=== PATIENT | female | born 2000 | race American Indian/Alaskan Native ===

== ENCOUNTER 2022-07-24 13:42 | Emergency (ER) | payer MEDICAID ==
--- NOTE | 2022-07-24 14:29 | Event Note ---
ED Screening Note Date of service: 07/24/22 Time: 14:26 ED Screening Note: This initial assessment/diagnostic orders/clinical plan/treatment(s) is/are subject to change based on patients health status, clinical progression and re- assessment by fellow clinical providers in the ED. Further treatment and workup at subsequent clinical providers discretion. Patient/guardian urged not to elope from the ED as their condition may be serious if not clinically assessed and managed. Patient with sore throat for 3 days. Seen at [facility] and told to go to [place]. Came here instead because her mother did not want to drive her to [place]. +Trismus - +Palatal edema - unable to see uvula due to trismus. Charge nurse called and patient sent straight back to Main ED. My Active Orders 07/24/22 14:22 dexAMETHasone [Decadron] 10 mg IV ONCE ONE 07/24/22 14:24 2 GM IV ONCE cefTRIAXone/NS 2 GM/100 ML [Rocephin/Ns 2 gm/100 ml] 2 gm in 100 ml IV ONCE Initial orders include: see above.
[2022-07-24] MEDS ORDERED: dexAMETHasone 20 MG/5 ML VIAL IV NR (15:00)
[2022-07-24] MEDS ORDERED: cefTRIAXone/NS 2 GM/100 ML 2 GM/100 ML BAG IV NR (15:00)
[2022-07-24] MEDS ORDERED: KETOROLAC 30 MG/1 ML INJ IV ONE (15:32)
[2022-07-24] MEDS ORDERED: SODIUM CHLORIDE 0.9% 1000 ML 1,000 ML IV ONE ×4 (15:32→23:50)
--- NOTE | 2022-07-24 15:49 | Emergency Department Report ---
HPI - General Chief Complaint: Sore Throat PUI?: Yes Time Seen by Provider: 07/24/22 15:30 - HPI HPI: 21yo F w/asthma, presents for evaluation of throat pain x 3 days. Pt states that she had a "swab' in her throat to test for drugs, after a job interview as a requirement. She states that after that, she began developing bilateral throat pain, L>>R. She reports difficulty swallowing her oral secretions,headache, and shortness of breath. Pt reports she went to [facility] [place] this morning and states that "they did nothing for me." Patient has proper paperwork here from [facility] which documents for vitals at that time. She states she was referred to go to the emergency department but she was not transferred by this facility. She states "I am having she denies any illicit ED Past Medical Hx - Past Medical History Previous Medical History?: No ED Review of Systems ROS: Stated complaint: SORE THROAT/HEADACHE/EAR PAIN Other details as noted in HPI Other ROS negative Comment: All other systems reviewed and negative Physical Exam - Physical Exam Vital Signs: Vital Signs 07/24/22 14:21 Temperature 102.4 F H Pulse Rate 127 H Respiratory 20 Rate Blood Pressure 115/76 [Left] O2 Sat by Pulse 100 Oximetry General: Gen: pt is well appearing, no acute distress HEENT: Normocephalic atraumatic pupils equally round and reactive to light extraocular muscles intact sclera anicteric Neck:pt has reproducible pain with flexion of her neck; no midline spinal tend erness palpation, no JVD, no carotid bruits, no nuchal rigidity; +trismus noted; unable to visualize posterior oropharynx secondary to trismus; dentition wnl; no angioedema, no macroglossia, no ludwigs angina; +palpable anterior cervical lad CVS: S1-S2 regular rate and rhythm with no gallops rubs or murmurs, chest wall nontender Pulmonary: Clear to auscultation bilaterally, no wheezes rales or rhonchi Abdomen: Soft nondistended nontender no guarding or rebound tenderness, no palpable deformities or step-offs, normal active bowel sounds, no hepatosplenomegaly, no pulsatile masses : Deferred Extremities: No cyanosis no clubbing no edema, intact distal peripheral pulses, Integumentary: Skin normal, no petechia no purpura no abscess no lacerations no evidence of trauma no evidence of infection Neuro: Patient is awake alert and oriented to person place time situation, mentating well, cranial nerves II through XII intact, no focal neurodeficits, sensation grossly tact Psych: Calm cooperative, mood affect normal ED Course Vital Signs 07/24/22 14:21 Temperature 102.4 F H Pulse Rate 127 H Respiratory 20 Rate Blood Pressure 115/76 [Left] O2 Sat by Pulse 100 Oximetry - Reevaluation(s) Reevaluation #1: 07/24/22 16:17 pt is asleep, lying back in her stretcher, she is easily arousable; she is not actively spitting up, she is tolerating her oral secretions at this time - Consultations Consultation #1: 07/24/22 15:42 I telephoned [facility] [phone]. I spoke to the examining PA who saw this patient this morning @ 11:20am. Per his verbal report, the pt was not given any treatment prior to being referred for transfer. She had a covid test which was negative, and a rapid strep test "which I think could be positive," and an influenza test. Consultation #2: 07/24/2922: Returned call received from [facility] at 10:45 PM. I was connected with the on-call ENT physician, . She agrees to having the patient transferred and is advising that the patient be transferred to [facility]. I was subsequently transferred to the ED attending, Dr. Sanz at 10:56 PM. She has agreed to accept the patient for emergent transfer in the setting of sepsis secondary to acute peritonsillar abscess. ED Medical Decision Making - Lab Data Result diagrams: 07/24/22 17:33 07/24/22 17:33 - Radiology Data Radiology results: report reviewed - Medical Decision Making This is a 21-year-old female who presents with several days of progressively worsening fevers, throat pain, trismus, inability to tolerate her oral secreti ons. Patient is found to be septic today with a fever 102.4 Fahrenheit, heart rate of 116 bpm, white blood cell count 13.[address] scan findings demonstrate left sided peritonsillar abscess with concomitant phlegmon. Multiple hospitals were telephoned as ENT services are not readily available here at [facility]. These facilities included but were not limited to [facility], [facility], and [facility]. Patient was subsequently accepted via conference call with both ENT, Dr. Kaiser, as well as ER physician at [facility], , for definitive management. Of note the patient was reassessed by me multiple times. She has a mild muffled voice but was no longer observed to be spitting up in a drink bottle. She is nontoxic-appearing. She remained hemodynamically stable and neurovascular intact. Critical Care Time: No Critical care attestation.: If time is entered above; I have spent that time in minutes in the direct care of this critically ill patient, excluding procedure time. ED Disposition Clinical Impression: Sepsis, Peritonsillar abscess, Phlegmon Disposition: 30 STILL A PATIENT Is pt being admited?: No Does the pt Need Aspirin: No Condition: Stable
[2022-07-24] MEDS ORDERED: MORPHINE 4 MG/1 ML INJ IV ONE (15:58)
[2022-07-24] MEDS ORDERED: AMPICILLIN/SULBACTA 3GM/100ML 3 GM/100 ML BAG IV SCH (16:00)
[2022-07-24 18:06] LABS: Hematocrit 32.6 % (30.3-42.9); Hemoglobin 11.6 gm/dl (10.1-14.3); Mean Corpuscular HGB Conc 36 % (30-34); Mean Corpuscular Volume 92 fl (79-97); Platelet Count 180 K/mm3 (140-440); Red Blood Count 3.54 M/mm3 (3.65-5.03); Red Cell Distribution Width 11.6 % (13.2-15.2)
[2022-07-24 18:29] LABS: Alanine Aminotransferase 7 units/L (7-56); Albumin 3.7 g/dL (3.9-5); Blood Urea Nitrogen 8 mg/dL (7-17); Calcium 8.1 mg/dL (8.4-10.2); Hemolysis Index 13
[2022-07-24 18:36] LABS: BUN/Creatinine Ratio 16
[2022-07-24 18:51] LABS: Band Neutrophils # (Manual) 0.1 K/mm3; Basophils % (Manual) 0 % (0.0-1.8); Eosinophils % (Manual) 0 % (0.0-4.3); Monocytes % (Manual) 0 % (0.0-7.3); Total Cells Counted 100
[2022-07-24 18:52] LABS: Platelet Estimate Consistent w Auto; RBC Morphology Normal
--- NOTE | 2022-07-24 19:27 | Cat Scan Report ---
CT HEAD WITHOUT CONTRAST INDICATION / CLINICAL INFORMATION: R sided neck pain, fever, trismus. TECHNIQUE: All CT scans at this location are performed using CT dose reduction for ALARA by means of automated exposure control. COMPARISON: None available. FINDINGS: HEMORRHAGE: None. EXTRA-AXIAL SPACES: Normal in size and morphology for the patient's age. VENTRICULAR SYSTEM: Normal in size and morphology for the patient's age. CEREBRAL PARENCHYMA: No significant abnormality. No acute territorial infarct. MIDLINE SHIFT / HERNIATION: None. CEREBELLUM / BRAINSTEM: No significant abnormality. ORBITS: Normal as visualized. SOFT TISSUES: No significant abnormality. SKULL: No significant abnormality. PARANASAL SINUSES / MASTOID AIR CELLS: Normal as visualized. ADDITIONAL FINDINGS: None. IMPRESSION: 1. No acute intracranial abnormality. Signer Name: Herrera John MD Signed: 07/24/2022 7:23 PM Workstation Name: [id number]
--- NOTE | 2022-07-24 20:36 | Cat Scan Report ---
CT NECK WITH INTRAVENOUS CONTRAST AND MULTIPLANAR RECONSTRUCTION CLINICAL HISTORY: R sided neck pain, fever, trismus TECHNIQUE: 2.5 mm thick contiguous axial scans were obtained from the skull base down to the aortic arch during intravenous contrast administration. In addition to evaluation of axial source images sagittal and co angie multiplanar reconstructions were produced and reviewed for this report. CONTRAST DOSE REPORT: Omnipaque 350: [address] imaging studies performed at this facility utilize dose modulation, iterative reconstruction o r weight based dosing, if appropriate, to obtain the lowest achievable radiation dose. FINDINGS: AIRWAY: There is a low-attenuation collection with isodense surround deep to the left palatine tonsil consistent with a peritonsillar abscess. This measures about 14 x 10 mm in transverse dimension by 1 0 mm in superior-inferior dimension. There is decreased attenuation in the adjacent fascial planes co nsistent with effusion or phlegmon. This lateralizes to the side opposite the patient's reported righ t-sided symptoms. No additional abnormalities are observed on evaluation of the airway. Nasopharynx, hypopharynx, larynx and visualized portions of the subglottic airway all have an unremarkable appeara nce. LYMPH NODES: Normal-sized lymph nodes are identified bilaterally. There is no indication of pathologi june adenopathy. ORAL CAVITY/FLOOR OF MOUTH: Tongue and floor of mouth have an unremarkable appearance. MAJOR SALIVARY GLANDS: The parotid and submandibular salivary glands have a normal appearance. NASAL CAVITY AND PARANASAL SINUSES: Pneumatization of the left middle turbinate is noted. Rachel bull gladis produces marked expansion of the left middle turbinate with narrowing of the nasal cavity. 8 mm o f [id number] deviation of the nasal septum is noted. No additional abnormality. The paranasal sinu ses are free from inflammatory mucosal disease. ORBITS:No abnormalities of the visualized portions of the orbits are identified. Globes, optic nerves , extraocular muscles and lacrimal glands have an unremarkable appearance. THYROID GLAND: The thyroid gland is normal in size and homogeneous in attenuation. No focal thyroid l esions are identified. TEMPORAL BONES:Mastoid air cells are normally pneumatized. CRANIOCERVICAL JUNCTION:No significant abnormality. CERVICAL SPINE: Evaluation of the cervical spine reveals no significant abnormality. Normal alignment is maintained. No significant degenerative changes are identified. LUNG APICES: Evaluation of the lung apices reveals no abnormality. There is no indication of lung nod ule or infiltrate. The visualized portions of the superior mediastinum have an unremarkable appearanc e. CONTRAST ADMINISTRATION: Enhancement of normal vascular structures is demonstrated. No areas of abnor mal contrast enhancement are identified. IMPRESSION: 1. Findings indicate the presence of a 14 x 10 x 10 mm peritonsillar abscess deep to the left palatin e fossa. Findings indicate associated phlegmon in the adjacent deep fascial planes. 2. No additional abnormality. Signer Name: Fransisco Allison MD Signed: 07/24/2022 8:32 PM Workstation Name: [id number]
[2022-07-24] MEDS ORDERED: AMPICILLIN/SULBACTA 1.5GM/50ML 1.5 GM/50 ML BAG IV ONE (23:17)
[2022-07-25 00:10] VITALS: BP 115/67
[2022-07-25] MEDS ORDERED: metroNIDAZOLE/NS 500 MG/100 ML 500 MG/100 ML BAG IV ONE (00:40)
== END 2022-07-25 01:00 | disposition still patient (30) ==
LOC: ED 13:42
DX: A41.9 Sepsis, unspecified organism (principal); J36 Peritonsillar abscess; L02.91 Cutaneous abscess, unspecified
CPT/HCPCS: 36415; 70450; 70491; 80053; 82140; 82962; 84703; 85007; 85025; 87040; 87116; 87400; 87430; 96361; 96365; 96367; 96375; 99285; J0696; J1100; J1885; J2270; J7030; J7517; Q9967; J0295